=== PATIENT | female | born 1985 | race Caucasian/White ===

== ENCOUNTER 2022-10-08 14:16 | Emergency (ER) | payer MEDICAID ==
[~2022-10-08] VITALS: Ht 167.6 cm; Wt 59.0 kg
[2022-10-08] MEDS ORDERED: LORAZEPAM 2 MG/1 ML VIAL ONE (16:22)
[2022-10-08] MEDS ORDERED: OLANZAPINE 10 MG VIAL IM ONE ×2 (16:22→16:30)
[2022-10-08 16:25] LABS: HEMATOCRIT 42.8 % (31.2-41.9); PLATELET COUNT (AUTO) 337 K/uL (179-408)
[2022-10-08] MEDS ORDERED: LORAZEPAM 2 MG/1 ML VIAL IM ONE (16:30)
[2022-10-08 16:39] LABS: ALANINE AMINOTRANSFERASE 96 U/L (14-59); ALKALINE PHOSPHATASE 51 U/L (50-136); ASPARTATE AMINOTRANSFERASE 61 U/L (15-37); BILIRUBIN,DIRECT 0.1 mg/dL (0.0-0.2); BILIRUBIN,TOTAL 0.3 mg/dL (0.2-1.0); CARBON DIOXIDE 30 mmol/L (21-32); CHLORIDE 110 mmol/L (98-107); CREATININE 0.6 mg/dL (0.6-1.3); GLUCOSE 95 mg/dL (74-106); POTASSIUM 4.1 mmol/L (3.5-5.1); TOTAL PROTEIN, SERUM 7.6 g/dL (6.4-8.2); UREA NITROGEN, BLOOD 7 mg/dL (7-18)
[2022-10-08 16:46] LABS: ACETAMINOPHEN < 2.0 ug/mL (10-30)
[2022-10-08 16:54] LABS: *BILIRUBIN,URIN NEGATIVE (NEGATIVE); *BLOOD, URINE NEGATIVE (NEGATIVE); *CLARITY,URINE CLEAR (CLEAR); *COLOR,URINE YELLOW (YELLOW); *KETONES,URINE NEGATIVE (NEGATIVE); *UROBILINOGEN,URINE 0.2 E.U./dl (NORMAL); LEUKOCYTE ESTERASE ,URINE NEGATIVE (NEGATIVE); NITRITE, URINE NEGATIVE (NEGATIVE); PH,URINE 6.5 (5.0-8.0); UGLUCOSE NEGATIVE (NEGATIVE)
[2022-10-08 16:57] LABS: ETHANOL 351 MG/DL (0-0)
[2022-10-08 17:02] LABS: *AMPHETAMINE, URINE NEGATIVE (NEGATIVE); *CANNABINOID, URINE POSITIVE (NEGATIVE); *COCCAINE, URINE NEGATIVE (NEGATIVE); *PHENCYCLIDINE SCREEN,URINE NEGATIVE (NEGATIVE)
[2022-10-09 08:52] VITALS: BP 133/68
== END 2022-10-09 08:56 | disposition home or self-care (01) ==
LOC: ER 14:16
DX: T50.901A Poisoning by unspecified drugs, medicaments and biological substances, accidental (unintentional), initial encounter (principal); F10.10 Alcohol abuse, uncomplicated; R10.2 Pelvic and perineal pain; Y90.9 Presence of alcohol in blood, level not specified; Y92.89 Other specified places as the place of occurrence of the external cause
CPT/HCPCS: 80076; 80048; 81003; 85025; 84702; 36415; 99291; 96372 ×2; 80299; 80320; 80307; J2060; G0480; J2358